=== PATIENT | female | born 1995 | race Caucasian/White ===

== ENCOUNTER 2018-03-15 23:49 | Emergency (ER) | payer OTHER ==
[2018-03-16] MEDS ORDERED: NS 0.9% 1000 ML* 1,000 ML IV ONE (00:03)
[2018-03-16] MEDS ORDERED: Pantoprazole IV* 40 MG IV ONE (00:04)
[2018-03-16 00:31] LABS: ABS Basophils 0 10^3/ul (0-0.2); ABS Eosinophils 0 10^3/ul (0-0.6); ABS Lymphocytes 0.7 10^3/ul (1.0-4.8); ABS Neutrophils 14.3 10^3/ul (1.5-7.7); ABS Nucleated RBC 0 10^3/ul; Eosinophil % 0.2 % (0-6); Hematocrit 45 % (35-47); Hemoglobin 14.8 g/dl (12.0-16.0); Lymphocyte % 4.2 % (25-47); Mean Corpuscular HGB Conc 33 g/dl (31-36); Mean Corpuscular Hemoglobin 27 pg (27-31); Mean Corpuscular Volume 80 fL (80-97); Mean Platelet Volume 7.7 um3 (7.4-10.4); Nucleated Red Blood Cells % 0; Platelet Count 301 10^3/ul (150-450); Red Blood Count 5.58 10^6/ul (4.00-5.40); Red Cell Distribution Width 13 % (10.5-15); White Blood Count 16.1 10^3/ul (3.5-10.8)
[2018-03-16 00:44] LABS: EGFR Non-African American 95.8 (>60)
[2018-03-16 03:18] LABS: Hematocrit 38 % (35-47); Hemoglobin 12.9 g/dl (12.0-16.0)
[2018-03-16 03:54] VITALS: BP 122/63
[2018-03-16] MEDS ORDERED: Ondansetron ODT TAB* 4 MG ONE (04:41)
--- NOTE | 2018-03-16 05:31 | ED ---
Laquita Curiel SooYoung, scribed for Dago Carbone MD on 03/16/18 at 0014 . Abdominal Pain/Female - HPI Summary HPI Summary: A 22 y/o F presents to ED BIBA with c/o severe epigastric abd pain onset 1929, approx. 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 Associated sx: vomiting approximately one hour after onset of abd sx, hematemesis, melena with "a lot of bright red blood," momentary syncope as she was walking to the car. Family members then proceeded to call the ambulance. Eight days ago, pt states she had abd pain and hemesis, but thought it was something she ate and did not seek medical attention. At bedside, she notes her tongue is "on fire," and her LUE is "going numb" which she attributes to anxiety. Pt was given Zofran in the ambulance. PMHx: IBS diagnosed in August. She states not having episodes of bloody vomit or stools previous to last week. Additional PMHx includes hypoglycemia, syncopal episodes. SHx: Appendectomy in 2007, exploratory abd surgery in 2013 to look for endometriosis, which was negative. Pt is a recent college graduate. LNMP: Should start soon, states she is not late. - History of Current Complaint Stated Complaint: ABD PAIN Time Seen by Provider: 03/15/18 23:56 Hx Obtained From: Patient Onset/Duration: Sudden Onset, Lasting Hours, Still Present Timing: Constant Severity Initially: Severe Severity Currently: Mild Pain Intensity: 3 Pain Scale Used: 0-10 Numeric Location: Epigastric Character: Other: - aching Associated Signs and Symptoms: Positive: Blood in Stool, Vomiting - bloody emesis, Other: - syncope Allergies/Adverse Reactions: Allergies Allergy/AdvReac Type Severity Reaction Status Date / Time No Known Allergies Allergy Verified 03/16/18 00:30 PMH/Surg Hx/FS Hx/Imm Hx Previously Healthy: No Cardiovascular History: Reports: Other Cardiovascular Problems/Disorders - Hypoglycemia GI History: Reports: Hx Irritable Bowel Neurological History: Reports: Other Neuro Impairments/Disorders - Vasovagal episodes - Surgical History Surgery Procedure, Year, and Place: Appendectomy in 2007, exploratory abd surgery in 2013 to look for endometriosis, which was negative. - Family History Family History: GI-related: diverticulitis, IBS, ulcers, Crohn's. DM (maternal and paternal). CA - ovarian and cervical. Heart failure (paternal). - Social History Occupation: Unemployed - recent college-grad, states she's actively seeking employment Lives: With Family Alcohol Use: None Hx Substance Use: No Substance Use Type: Reports: None Hx Tobacco Use: No Smoking Status (MU): Never Smoked Tobacco Review of Systems Negative: Fever Positive: Abdominal Pain - epigastric, Vomiting, Other - melena; hematemesis Positive: Numbness - LUE, Syncope All Other Systems Reviewed And Are Negative: Yes Physical Exam - Summary Physical Exam Summary: Appearance: Well-appearing, Well-nourished, lying in bed comfortably Skin: Warm, dry, no obvious rash Eyes: sclera anicteric, no conjunctival pallor ENT: mucous membranes moist, pharynx appears normal Neck: Supple, nontender Respiratory: Clear to auscultation, no signs of respiratory distress Cardiovascular: Normal S1, S2. No murmurs. Normal distal pulses in tibial and radial bilaterally. Abdomen: Soft, nontender, normal active bowel sounds present Musculoskeletal: Normal, Strength/ROM Intact Neurological: A&Ox3, awake and alert, mentation is normal, speech is fluent and appropriate Psychiatric: affect is normal, does not appear anxious or depressed Triage Information Reviewed: Yes Vital Signs On Initial Exam: Initial Vitals Temp Pulse Resp BP Pulse Ox 98 F 89 16 132/73 98 03/16/18 00:29 Vital Signs Reviewed: Yes Diagnostics - Vital Signs Vital Signs Temp Pulse Resp BP Pulse Ox 03/16/18 03:54 84 16 122/63 98 03/16/18 03:47 84 16 117/68 97 03/16/18 03:22 80 16 117/68 98 03/16/18 03:00 89 18 97 03/16/18 02:52 87 15 111/63 98 03/16/18 02:22 89 16 126/66 98 03/16/18 02:00 92 18 98 03/16/18 01:52 88 24 122/68 98 03/16/18 01:44 84 16 126/70 99 03/16/18 01:05 90 100 03/16/18 00:52 97 21 120/73 99 03/16/18 00:29 36.6 C 89 16 132/73 98 03/16/18 00:22 88 11 132/73 98 03/16/18 00:21 16 - Laboratory Lab Results: Lab Results 03/16/18 03/16/18 03/16/18 Range/Units 00:16 00:16 00:16 WBC 16.1 H (3.5-10.8) 10^3/ul RBC 5.58 H (4.00-5.40) 10^6/ul Hgb 14.8 (12.0-16.0) g/dl Hct 45 (35-47) % MCV 80 (80-97) fL MCH 27 (27-31) pg MCHC 33 (31-36) g/dl RDW 13 (10.5-15) % Plt Count 301 (150-450) 10^3/ul MPV 7.7 (7.4-10.4) um3 Neut % (Auto) 89.4 H (38-83) % Lymph % (Auto) 4.2 L (25-47) % [place] % (Auto) 6.1 (0-7) % Eos % (Auto) 0.2 (0-6) % Baso % (Auto) 0.1 (0-2) % Absolute Neuts (auto) 14.3 H (1.5-7.7) 10^3/ul Absolute Lymphs (auto) 0.7 L (1.0-4.8) 10^3/ul Absolute Monos (auto) 1.0 H (0-0.8) 10^3/ul Absolute Eos (auto) 0 (0-0.6) 10^3/ul Absolute Basos (auto) 0 (0-0.2) 10^3/ul Absolute Nucleated RBC 0 10^3/ul Nucleated RBC % 0 Sodium 138 (135-145) mmol/L Potassium 3.8 (3.5-5.0) mmol/L Chloride 104 (101-111) mmol/L Carbon Dioxide 21 L (22-32) mmol/L Anion Gap 13 H (2-11) mmol/L BUN 9 (6-24) mg/dL Creatinine 0.75 (0.51-0.95) mg/dL Est GFR ( Amer) 115.9 (>60) Est GFR (Non-Af Amer) 95.8 (>60) BUN/Creatinine Ratio 12.0 (8-20) Glucose 102 H (70-100) mg/dL Calcium 9.9 (8.6-10.3) mg/dL Total Bilirubin 0.60 (0.2-1.0) mg/dL AST 28 (13-39) U/L ALT 20 (7-52) U/L Alkaline Phosphatase 49 (34-104) U/L Total Protein 8.4 (6.4-8.9) g/dL Albumin 4.8 (3.2-5.2) g/dL Globulin 3.6 (2-4) g/dL Albumin/Globulin Ratio 1.3 (1-3) Lipase 13 (11.0-82.0) U/L Blood Type B Positive Antibody Screen Negative 03/16/18 Range/Units 03:08 WBC (3.5-10.8) 10^3/ul RBC (4.00-5.40) 10^6/ul Hgb 12.9 (12.0-16.0) g/dl Hct 38 (35-47) % MCV (80-97) fL MCH (27-31) pg MCHC (31-36) g/dl RDW (10.5-15) % Plt Count (150-450) 10^3/ul MPV (7.4-10.4) um3 Neut % (Auto) (38-83) % Lymph % (Auto) (25-47) % [place] % (Auto) (0-7) % Eos % (Auto) (0-6) % Baso % (Auto) (0-2) % Absolute Neuts (auto) (1.5-7.7) 10^3/ul Absolute Lymphs (auto) (1.0-4.8) 10^3/ul Absolute Monos (auto) (0-0.8) 10^3/ul Absolute Eos (auto) (0-0.6) 10^3/ul Absolute Basos (auto) (0-0.2) 10^3/ul Absolute Nucleated RBC 10^3/ul Nucleated RBC % Sodium (135-145) mmol/L Potassium (3.5-5.0) mmol/L Chloride (101-111) mmol/L Carbon Dioxide (22-32) mmol/L Anion Gap (2-11) mmol/L BUN (6-24) mg/dL Creatinine (0.51-0.95) mg/dL Est GFR ( Amer) (>60) Est GFR (Non-Af Amer) (>60) BUN/Creatinine Ratio (8-20) Glucose (70-100) mg/dL Calcium (8.6-10.3) mg/dL Total Bilirubin (0.2-1.0) mg/dL AST (13-39) U/L ALT (7-52) U/L Alkaline Phosphatase (34-104) U/L Total Protein (6.4-8.9) g/dL Albumin (3.2-5.2) g/dL Globulin (2-4) g/dL Albumin/Globulin Ratio (1-3) Lipase (11.0-82.0) U/L Blood Type Antibody Screen Result Diagrams: 03/16/18 03:08 03/16/18 00:16 Lab Statement: Any lab studies that have been ordered have been reviewed, and results considered in the medical decision making process. - CT A/P CT with CT CT Interpretation: No Acute Changes - "FINDINGS: Neg for urinary tract stone or obstruction. Nondistended urinary bladder. No bowel obstruction, free air, or free fluid. Liquid and colon. Diarrhea? No acute abnormalities of the liver, spleen, pancreas, or adrenal glands. No obvious abnormalities of the gallbladder. Osseous structures are intact." ED physician has reviewed this report. CT Interpretation Completed By: Radiologist Re-Evaluation - Re-Evaluation 1 Re-Evaluation Time: 01:18 Change: Unchanged Comment: Pt passed bloody stool while in ED. Pt is no longer vomiting. Abd pain is still present. Abdominal Pain Fem Course/Dx - Diagnoses Provider Diagnoses: Colitis, Upper GI bleeding - Provider Notifications Discussed Care Of Patient With: Boo Lainez Time Discussed With Above Provider: 04:05 Instructed by Provider To: Other - Accepts for transfer with Dr. Diaz as accepting physician. Discussed care with Boo Lainez again at 0436, discussing with their GI, Dr. Up Discharge - Sign-Out/Discharge Documenting (check all that apply): Discharge/Admit/Transfer - Discharge Plan Condition: Guarded Disposition: TRANS HIGHER LVL OF CARE FAC Referrals: Erica John DO [Primary Care Provider] - - Billing Disposition and Condition Condition: GUARDED Disposition: Trans Higher Lvl of Care Fac The documentation as recorded by the Laquita bond,SoAliceoung accurately reflects the service I personally performed and the decisions made by me, Dago Carbone MD.
--- NOTE | 2018-03-16 07:52 | RAD ---
CLINICAL HISTORY: abd pain,hematemesis,bloody diarrhea COMPARISON: None TECHNIQUE: Multiple contiguous axial CT scans were obtained of the abdomen and pelvis, without intravenous contrast enhancement. Coronal and sagittal multiplanar reformations are submitted for review. Oral contrast was not administered. FINDINGS: The study is limited by the lack of intravenous contrast. This limits evaluation of the solid organs and vasculature. LUNG BASES: The lung bases are clear. LIVER: The liver is normal in shape, size, contour, and attenuation. BILE DUCTS: There is no intrahepatic or extrahepatic biliary dilatation. GALLBLADDER: The gallbladder is normal, without pericholecystic inflammatory change. PANCREAS: The pancreas is normal, without mass or ductal dilatation. SPLEEN: Normal in size and appearance. UPPER GI TRACT: Evaluation of the gastrointestinal tract is limited by incomplete gastric distention. The upper GI tract is unremarkable. SMALL BOWEL AND MESENTERY: The small bowel is normal in contour, course, and caliber. There is no obstruction or dilatation. COLON: The colon is normal in contour, course, caliber. There is no pericolonic inflammatory change. There is post surgical change to the right lower quadrant. The appendix is not identified. ADRENALS: Normal bilaterally. KIDNEYS: The kidneys are normal in shape, size, contour, and axis. There is no hydronephrosis or nephrolithiasis. BLADDER: The bladder is smooth in contour. PELVIC ORGANS: The uterus and adnexa are grossly normal for technique. AORTA: The aorta is normal. IVC: Unremarkable LYMPH NODES: There is no lymphadenopathy by size criteria. ABDOMINAL WALL: There is no evidence for abdominal wall hernia. BONES AND SOFT TISSUES: The bones and soft tissues are unremarkable. OTHER: None IMPRESSION: NO ACUTE NONCONTRAST CT PATHOLOGY OF THE VISUALIZED ABDOMEN OR PELVIS.
== END 2018-03-16 03:57 | disposition short-term general hospital (02) ==
LOC: ED 23:49
DX: K92.2 Gastrointestinal hemorrhage, unspecified (principal); K52.9 Noninfective gastroenteritis and colitis, unspecified; Z83.79 Family history of other diseases of the digestive system; Z80.41 Family history of malignant neoplasm of ovary; Z80.49 Family history of malignant neoplasm of other genital organs
CPT/HCPCS: 36415; 74176; 80053; 83690; 85014; 85018; 85025; 86850; 86900; 86901; 96361; 96374; 99284; A9270-GY